=== PATIENT | female | born 1975 | race Caucasian/White ===

== ENCOUNTER → 2022-08-24 12:15 | Outpatient (BNVA) | payer BC, SELFPAY | PROVIDERS: PCP Nurse Practitioner Family; Visit Provider Nurse Practitioner Family | DX: K57.92 Diverticulitis of intestine, part unspecified, without perforation or abscess without bleeding (principal); F41.9 Anxiety disorder, unspecified; R63.4 Abnormal weight loss; F17.200 Nicotine dependence, unspecified, uncomplicated; G47.00 Insomnia, unspecified; M06.9 Rheumatoid arthritis, unspecified; T14.8XXA Other injury of unspecified body region, initial encounter; Z12.11 Encounter for screening for malignant neoplasm of colon; K59.00 Constipation, unspecified; R19.7 Diarrhea, unspecified; R11.0 Nausea; Z78.0 Asymptomatic menopausal state; Z12.31 Encounter for screening mammogram for malignant neoplasm of breast; R42 Dizziness and giddiness; G43.909 Migraine, unspecified, not intractable, without status migrainosus; J45.909 Unspecified asthma, uncomplicated | CPT/HCPCS: 80053; 80061; 82306; 84443 ==

== ENCOUNTER 2022-09-23 10:54 | Outpatient (CLI) | payer BC, SELFPAY ==
--- NOTE | 2022-09-23 11:06 | MM_ITS ---
WS: [id number] BILATERAL SCREENING DIGITAL TOMOSYNTHESIS MAMMOGRAM WITH CAD HISTORY: Screening. COMPARISON: None available. Bilateral CC and MLO views with tomosynthesis and synthetic mammography submitted. Computer aided det ection analyzed. Breast composition: There are scattered areas of fibroglandular density. No suspicious masses, microc alcifications or architectural distortion. MM/[place] [id number] IMPRESSION: BI-RADS: 1-Negative FOLLOW UP: 1 Year Follow-up
== END 2022-09-23 10:55 | disposition home or self-care (01) ==
LOC: RAD 10:55
PROVIDERS: PCP Nurse Practitioner Family; Visit Provider Nurse Practitioner Family
DX: Z12.31 Encounter for screening mammogram for malignant neoplasm of breast (principal)
CPT/HCPCS: 77063; 77067

== ENCOUNTER 2022-10-08 13:23 | Outpatient (CLI) | payer BC, SELFPAY ==
--- NOTE | 2022-10-08 14:30 | CT_ITS ---
WS: [id number] EXAMINATION: CT abdomen w con* [id number] REASON FOR EXAM: ABD pain, nausea, unintentional weight loss, COMPARISON: None available. IV CONTRAST ADMINISTERED: Omnipaque 350 95 ml TOTAL EXAM DLP: 847.[address] scans at [facility] use at least one of these dose optimization techniques: automated e xposure control; mA and/or kV adjustment per patient size (includes targeted exams where dose is matc hed to clinical indication); or iterative reconstruction. FINDINGS: Lung bases are clear. There is gastric banding. The liver and spleen are unremarkable. Small calculi are present in gallbladder without wall thickening or pericholecystic fluid. Pancreas is unremarkable . The adrenal glands are unremarkable. There is generalized atrophy of the left kidney. The right kid neelima is unremarkable. Oral contrast opacifies partially visualized canal without focal abnormality. Partially visualized ap pendix is unremarkable. CT/CT abdomen w con* [id number] IMPRESSION: No acute abnormality
--- NOTE | 2022-10-08 15:00 | CT_ITS ---
WS: [id number] CT HEAD TECHNIQUE: Noncontrast CT of the head obtained from the skullbase to the vertex. CLINICAL INFORMATION: dizziness, headache, nausea, unientional weight loss COMPARISON: None. DLP: 1058.[address] scans at [facility] use at least one of these dose optimization techniques: automated e xposure control; mA and/or kV adjustment per patient size (includes targeted exams where dose is matc hed to clinical indication); or iterative reconstruction. FINDINGS: No evidence of intracranial hemorrhage or mass effect. Ventricular system and basal cisterns are hull nt. No extra-axial fluid collections. No evidence of mass or mass effect. Normal lafleur-white different iation. Small amount of fluid in the LEFT maxillary sinus. Mastoid air cells well aerated. CT/CT head wo con* [id number] IMPRESSION: 1. No evidence of intracranial hemorrhage or mass effect. 2. Normal lafleur-white differentiation. 3. Partially visualized LEFT maxillary sinusitis. 4. Mastoid air cells well aerated. 5. No other acute findings.
[2022-10-08] MEDS: iohexol 350 mg/mL 500 mL Btl (per mL) IV (16:04)
== END 2022-10-08 13:24 | disposition home or self-care (01) ==
LOC: RAD 13:23
PROVIDERS: PCP Nurse Practitioner Family; Visit Provider Nurse Practitioner Family
DX: K57.92 Diverticulitis of intestine, part unspecified, without perforation or abscess without bleeding (principal); K59.00 Constipation, unspecified; R11.0 Nausea; R19.7 Diarrhea, unspecified; R63.4 Abnormal weight loss; J32.0 Chronic maxillary sinusitis
CPT/HCPCS: 70450; 74160; Q9967

== ENCOUNTER 2023-03-30 20:23 | Emergency (ER) | payer BC, SELFPAY ==
[2023-03-30 20:42] VITALS: BP 141/87; PULSE 89; RESP 14; TEMP 36.8; O2SAT 98; BMI 44.4
[2023-03-30 21:37] LABS: Basophils # 0.1 10^3/uL (0.0-0.1); Basophils % 0.6 %; Eosinophils # 0.1 10^3/uL (0.0-0.8); Eosinophils % 1.3 %; Hematocrit 41.3 % (37.0-47.0); Hemoglobin 13.4 g/dL (11.5-15.3); Lymphocytes # 2.9 10^3/uL (0.8-4.8); Lymphocytes % 26.3 %; Mean Corpuscular HGB Conc 32.4 g/dL (30.0-36.0); Mean Corpuscular Hemoglobin 31.1 pg (28.0-34.0); Mean Corpuscular Volume 95.8 fl (81-99); Mean Platelet Volume 9.7 fL (7.4-10.4); Monocytes # 0.7 10^3/uL (0.2-0.9); Monocytes % 6.4 %; Neutrophils # 7.09 10^3/uL (1.8-7.7); Neutrophils % 65.2 %; Nucleated Red Blood Cells % 0 %; Platelet Count 262 10^3/cmm (130-400); Red Blood Count 4.31 10^6/uL (4.1-5.3); Red Cell Distribution Width 13.4 % (12.1-15.1); White Blood Count 10.9 10^3/uL (4.0-10.0)
[2023-03-30 21:57] LABS: Alanine Aminotransferase 11 U/L (0-33); Albumin Level 3.8 g/dL (3.5-5.2); Alkaline Phosphatase 69 U/L (35-105); Anion Gap 13.3 (5-19); Aspartate Amino Transferase 13 U/L (0-32); Blood Urea Nitrogen 14 mg/dL (6-20); Calcium 9.1 mg/dL (8.5-10.5); Carbon Dioxide 26 mmol/L (22-29); Chloride 108 mmol/L (98-107); Globulin 3.1 g/dL (1.3-4.6); Glomerular Filtration Rate 75.9 mL/min (90-130); Glucose 119 mg/dL (65-115); Lipase 15 U/L (13-60); Osmolality Calculated 298 mOsm/kg (285-295); Potassium 4.3 mmol/L (3.5-5.1); Sodium 143 mmol/L (136-145); Total Bilirubin 0.2 mg/dL (0.15-1.2); Total Protein 6.9 g/dL (6.6-8.7)
== END 2023-03-30 22:44 | disposition left against medical advice (07) ==
LOC: ER 20:33
PROVIDERS: Emergency Medicine; Emergency Provider Family Medicine; PCP Nurse Practitioner Family
DX: Z53.21 Procedure and treatment not carried out due to patient leaving prior to being seen by health care provider (principal)
CPT/HCPCS: 36415; 80053; 83690; 85025

== ENCOUNTER 2023-04-19 01:57 | Emergency (ER) | payer BC, SELFPAY ==
[2023-04-19 01:59] VITALS: BMI 43.9
[2023-04-19 02:02] VITALS: BP 150/115; PULSE 77; RESP 16; TEMP 36.6; O2SAT 99
--- NOTE | 2023-04-19 02:21 | CTR_ITS ---
PROCEDURE INFORMATION: Exam: CT Abdomen And Pelvis With Contrast Exam date and time: 04/19/2023 2:45 AM Age: 48 years old Clinical indication: Abdominal pain; Localized; Right upper quadrant (ruq); Prior surgery; Surgery date: 6+ months; Surgery type: Lap band, hysterectomy, ureters replaced at 3 y/o per PT; Additional info: Ruq pain TECHNIQUE: Imaging protocol: Computed tomography of the abdomen and pelvis with contrast. Radiation optimization: All CT scans at this facility use at least one of these dose optimization techniques: automated exposure control; mA and/or kV adjustment per patient size (includes targeted exams where dose is matched to clinical indication); or iterative reconstruction. Contrast material: OMNI 350; Contrast volume: 100 ml; Contrast route: INTRAVENOUS (IV); REPORTING DATA: Count of CT and Cardiac NM exams in prior 12 months: This patient has received 2 known CTs and 0 known cardiac nuclear medicine studies in the 12 months prior to the current study. COMPARISON: CT abdomen w con* [id number] 10/08/2022 4:18 PM RADIATION DOSE METRICS: Total DLP (mGy-cm): 1182.31 FINDINGS: Tubes, catheters and devices: Lap band device in place in expected position. Liver: No acute abnormality. No mass. Gallbladder and bile ducts: Faint tiny gallstones or sludge demonstrated within the posterior gallbladder with slight gallbladder wall thickening and trace pericholecystic fluid suggestive of developing cholecystitis. No significant biliary ductal dilatation. Pancreas: No acute abnormality. No ductal dilation. Spleen: No acute abnormality. Adrenal glands: No significant or acute abnormality. Kidneys and ureters: Chronic left renal atrophy and scarring. Grossly normal right kidney. No hydronephrosis or hydroureter. Stomach and bowel: Ingested contents within stomach. No significant large or small bowel distention. No evidence of diverticulitis. Appendix: Grossly normal nondilated visualized appendix. Intraperitoneal space: No significant fluid collection. No free air. Vasculature: No acute abnormality. No abdominal aortic aneurysm. Lymph nodes: No enlarged lymph nodes. Urinary bladder: Unremarkable as visualized. Reproductive: Previous hysterectomy. Bones/joints: No acute osseous abnormality. No dislocation. Soft tissues: No significant soft tissue abnormalities. CT/CT abdomen pelvis w con* [id number] IMPRESSION: 1. Faint tiny gallstones or sludge demonstrated within the posterior gallbladder with slight gallbladder wall thickening and trace pericholecystic fluid suggestive of developing cholecystitis. 2. Chronic left renal atrophy and scarring. 3. Lap band device in place in expected position. 4. Previous hysterectomy.
[2023-04-19] MEDS: ketorolac 30 mg/mL INJ IVP (02:28)
[2023-04-19] MEDS: ondansetron 2 mg/ML SDV 2 mL 4 MG IVP (02:28)
[2023-04-19] MEDS: sodium chloride 0.9% 1,000 ML 999 ML IV (02:28)
[2023-04-19] MEDS: HYDROmorphone 1 mg/mL INJ 1 mL IVP (02:28)
[2023-04-19] MEDS: iohexol 350 mg/mL 500 mL Btl (per mL) IV (02:48)
[2023-04-19 02:49] LABS: Basophils % 0.2 %; Eosinophils % 0.4 %; Hematocrit 31.4 % (37.0-47.0); Hemoglobin 10.2 g/dL (11.5-15.3); Mean Corpuscular HGB Conc 32.5 g/dL (30.0-36.0); Mean Corpuscular Hemoglobin 31.9 pg (28.0-34.0); Mean Corpuscular Volume 98.1 fl (81-99); Mean Platelet Volume 9.4 fL (7.4-10.4); Monocytes # 0.4 10^3/uL (0.2-0.9); Monocytes % 4.8 %; Neutrophils # 7.02 10^3/uL (1.8-7.7); Neutrophils % 82.2 %; Nucleated Red Blood Cells % 0 %; Platelet Count 183 10^3/cmm (130-400); Red Cell Distribution Width 13.3 % (12.1-15.1); White Blood Count 8.5 10^3/uL (4.0-10.0)
--- NOTE | 2023-04-19 02:52 | ED_ITS ---
HPI - Abdominal Pain General: Chief Complaint: Abdominal Pain Stated Complaint: abd pain Time Seen by Provider: 04/19/23 02:04 Source: patient History of Present Illness: 48-year-old female with a history of gastric lap band surgery. She has had a in the distant past, but no other belly surgeries. She presents with right upper quadrant pain radiating around into her back. This is a second episode she has had. She says this episode is worse than the previous one. She is nauseated. She states that she never vomits after her lap band surgery. No diarrhea. No fever. MD elicited complaint: abdominal pain Pertinent past history: other Onset (ago): hour(s) Location: RUQ Quality: stabbing and aching Radiation: back Migration to: no migration Relieving factors: nothing Associated Symptoms: Reports nausea; Denies belching, bloating, chills, dysuria, fever(s), heartburn, hematochezia, melena and vomiting Review of Systems Const: Denies: fever(s) or chills ENMT: Denies: throat pain Card: Denies: chest pain Resp: Denies: dyspnea GI: Reports: nausea; Denies: vomiting, heartburn, bloating, belching, hematochezia or melena : Denies: flank pain, difficulty voiding or dysuria PFSH ED PFSH: Medical History Insomnia Smoker Family History Other Cancer Social History Smoking and tobacco status: current every day smoker Physical Exam Const: COMMON NORMALS: no acute distress GENERAL APPEARANCE: cooperative; not ill appearing and not frail appearing HENMT: COMMON NORMALS: normocephalic, atraumatic and Normal external nose present HEAD & SCALP: normocephalic and atraumatic FACE & SINUS: normal facial exam and face symmetric NOSE: Normal external nose present Eye: COMMON NORMALS: Equal, round and reactive pupils present and EOMs intact bilaterally PUPIL: Yes Equal, round and reactive pupils present Neck/C-Spine: GENERAL: Yes trachea midline Chest: CHEST: Yes Symmetrical chest wall rise Resp: COMMON NORMALS: normal respiratory effort, No retractions, No use of accessory muscles and clear to auscultation bilaterally AUSCULTATION: clear to auscultation bilaterally Cardio: COMMON NORMALS: regular rate and regular rhythm RATE: regular rate RHYTHM: regular rhythm GI: COMMON NORMALS: Normal to inspection, nondistended, normoactive bowel sounds present PALPATION: Yes Tenderness to palpation present (GI) Details: RUQ and Yes Guarding due to palpation present (GI) Extremity: COMMON NORMALS: no pedal edema Neuro: JUANI COMA SCALE: document GCS findings [place] coma scale eye openin g: Spontaneous [place] coma scale verbal response: Orientated Juani coma scale motor response: Obey commands [place] coma scale total score: 15 SENSORY EXAM: Yes extremities (intact) Psych: COMMON NORMALS: speech normal SPEECH: Yes normal speech Skin: COMMON NORMALS: no rashes or lesions noted GENERAL SKIN EXAM: no rashes or lesions noted Course Vital Signs: Vital signs: Vital Signs Temperature 97.9 F 04/19/23 02:02 Pulse Rate 92 04/19/23 04:23 Respiratory Rate 16 04/19/23 04:23 Blood Pressure 150/115 04/19/23 02:02 Pulse Oximetry 93 04/19/23 04:23 Oxygen Delivery Me thod Room Air, Nasal C annula 04/19/23 02:02 MDM - Abdominal Pain Medical Decision Making Patient with right upper quadrant pain. No fever. Hemoglobin is 10. White blood cell count is 8.5. Potassium is 2.5 with bicarbonate level of 15. C reatinine is 0.4. Lipase is 9. Liver enzymes are normal. Urinalysis is negative. CT shows tiny gallstones or sludge demonstrated in the posterior gallbladder with slight gallbladder wall thickening. Her pain is essentially resolved now with Toradol, Dilaudid, Zofran and IV fluid. Her potassium will be repleted with 20 mEq IV and 60 mEq p.o. liquid potassium. We will recheck potassium at 2 hours. If patient's pain is still improved, and potassium has come up appropriately, will allow home. Follow-up with surgery this week. We will ask case management to make appointment. Lab Data 04/19/23 02:39 04/19/23 04:33 Labs/Radiology: Radiology Impressions Abdomen/Pelvis CT 04/19/23 02:21 IMPRESSION: 1. Faint tiny gallstones or sludge demonstrated within the posterior gallbladder with slight gallbladder wall thickening and trace pericholecystic fluid suggestive of developing cholecystitis. 2. Chronic left renal atrophy and scarring. 3. Lap band device in place in expected position. 4. Previous hysterectomy. Laboratory Results WBC 8.5 10^3/uL (4.0-10.0) 04/19/23 02:39 RBC 3.20 10^6/uL (4.1-5.3) L 04/19/23 02:39 Hgb 10.2 g/dL (11.5-15.3) L 04/19/23 02:39 Hct 31.4 % (37.0-47.0) L 04/19/23 02:39 MCV 98.1 fl (81-99) 04/19/23 02:39 MCH 31.9 pg (28.0-34.0) 04/19/23 02:39 MCHC 32.5 g/dL (30.0-36.0) 04/19/23 02:39 RDW 13.3 % (12.1-15.1) 04/19/23 02:39 Plt Count 183 10^3/cmm (130-400) 04/19/23 02:39 MPV 9.4 fL (7.4-10.4) 04/19/23 02:39 Neut % (Auto) 82.2 % 04/19/23 02:39 Lymph % (Auto) 12.0 % 04/19/23 02:39 [place] % (Auto) 4.8 % 04/19/23 02:39 Eos % (Auto) 0.4 % 04/19/23 02:39 Baso % (Auto) 0.2 % 04/19/23 02:39 Neut # (Auto) 7.02 10^3/uL (1.8-7.7) 04/19/23 02:39 Lymph # (Auto) 1.0 10^3/uL (0.8-4.8) 04/19/23 02:39 [place] # (Auto) 0.4 10^3/uL (0.2-0.9) 04/19/23 02:39 Eos # (Auto) 0.0 10^3/uL (0.0-0.8) 04/19/23 02:39 Baso # (Auto) 0.0 10^3/uL (0.0-0.1) 04/19/23 02:39 Nucleated RBC % (auto) 0 % 04/19/23 02:39 Nucleated RBCs # 0.0 /100WBC 04/19/23 02:39 Sodium 143 mmol/L (136-145) 04/19/23 02:39 Potassium 4.5 mmol/L (3.5-5.1) 04/19/23 04:33 Chloride 119 mmol/L (98-107) H 04/19/23 02:39 Carbon Dioxide 15 mmol/L (22-29) L 04/19/23 02:39 Anion Gap 11.5 (5-19) 04/19/23 02:39 BUN 9 mg/dL (6-20) 04/19/23 02:39 Creatinine 0.4 mg/dL (0.5-0.9) L 04/19/23 02:39 GFR Calculation 169.0 mL/min (90-130) H 04/19/23 02:39 Glucose 100 mg/dL (65-115) 04/19/23 02:39 Calculated Osmolality 295 mOsm/kg (285-295) 04/19/23 02:39 Calcium 6.2 mg/dL (8.5-10.5) L 04/19/23 02:39 Total Bilirubin 0.2 mg/dL (0.15-1.2) 04/19/23 02:39 AST 8 U/L (0-32) 04/19/23 02:39 ALT 8 U/L (0-33) 04/19/23 02:39 Alkaline Phosphatase 39 U/L (35-105) 04/19/23 02:39 Total Protein 4.2 g/dL (6.6-8.7) L 04/19/23 02:39 Albumin 2.3 g/dL (3.5-5.2) L 04/19/23 02:39 Globulin 1.9 g/dL (1.3-4.6) 04/19/23 02:39 Lipase 9 U/L (13-60) L 04/19/23 02:39 Urine Color Yellow (Yellow) 04/19/23 Unknown Urine Appearance Sl hazy (CLEAR) A 04/19/23 Unknown Urine pH 5 (5-7) 04/19/23 Unknown Ur Specific [place] 1.025 (1.005-1.030) 04/19/23 Unknown Urine Protein Trace (Negative) 04/19/23 Unknown Urine Glucose (UA) Norm (Normal) 04/19/23 Unknown Urine Ketones 1+ (Negative) H 04/19/23 Unknown Urine Blood 2+ (Negative) H 04/19/23 Unknown Urine Nitrate Negative (Negative) 04/19/23 Unknown Urine Bilirubin Neg (Negative) 04/19/23 Unknown Urine Urobilinogen Norm mg/dL (Negative) 04/19/23 Unknown Ur Leukocyte Esterase Trace (Negative) H 04/19/23 Unknown Urine RBC 0-4 /hpf (0-2) H 04/19/23 Unknown Urine WBC 0-4 /hpf (0-5) H 04/19/23 Unknown Ur Squamous Epith Cells 0-4 /hpf (0-5) H 04/19/23 Unknown Amorphous Sediment Not Reportable 04/19/23 Unknown Urine Bacteria Trace /hpf (NONE) 04/19/23 Unknown Discharge Plan Discharge Patient Disposition: Home Clinical Impression: Cholecystitis, Hypokalemia Condition: Stable Prescriptions: New Percocet 7.5-325 mg tablet 1 tab PO Q6H PRN (Reason: pain) Qty: 7 0RF ondansetron 4 mg film 4 mg PO DAILY PRN (Reason: nausea and vomiting) Qty: 10 0RF amoxicillin-pot clavulanate 875-125 mg tablet 1 tab PO BID Qty: 14 0RF No Action [employer] CARD inhalation Rx Instructions: AT HS albuterol sulfate [Ventolin HFA] 90 mcg/actuation HFA aerosol inhaler 2 puff inhalation 6XD PRN (Reason: shortness of breath or wheezing) Qty: 8.5 6RF budesonide-formoterol [Symbicort] 160-4.5 mcg/actuation HFA aerosol inhaler 2 puff inhalation Q12H Qty: 10.2 6RF levothyroxine [Euthyrox] 25 mcg tablet 25 mcg PO DAILY 30 Days Qty: 30 3RF docusate sodium [DSS] 250 mg capsule 250 mg PO BID 30 Days Qty: 60 3RF simvastatin 20 mg tablet 20 mg PO .QHS 30 Days Qty: 30 3RF bupropion HCl [Wellbutrin SR] 150 mg tablet sustained-release 12 hr 150 mg PO BID 30 Days Qty: 60 2RF Linzess 145 mcg capsule 145 mcg PO DAILY 30 Days Qty: 30 3RF topiramate [Topamax] 25 mg tablet 25 mg PO BID 30 Days Qty: 60 3RF cholecalciferol (vitamin D3) 125 mcg (5,000 unit) capsule See Rx Instructions .ROUTE .COMPLEX Qty: 30 0RF Dose Instruction: TAKE ONE CAPSULE BY MOUTH DAILY Rx Instructions: TAKE ONE CAPSULE BY MOUTH DAILY Discharge Orders: Discharge ED (Routine); Ordered 04/19/23 Ordered By: Harry Barber Patient Instructions: Cholecystitis (ED), Hypokalemia (ED), Opioid Safety, Pain Management Activity Restrictions/Additional Instructions: Return for return of or worsening pain despite treatment, vomiting liquids or medications despite treatment, fever greater than 100, other concerning symptoms. Medications as directed. Case management has been consulted to make you a surgery appointment this coming week. You should hear from them Wednesday or Wednesday. You should have your potassium rechecked on Wednesday or Wednesday at your doctor's office. Coding Level of Care Code ED Card Punching Machine Operator for Andrzej Whitman
[2023-04-19 03:08] LABS: Alanine Aminotransferase 8 U/L (0-33); Albumin Level 2.3 g/dL (3.5-5.2); Alkaline Phosphatase 39 U/L (35-105); Anion Gap 11.5 (5-19); Aspartate Amino Transferase 8 U/L (0-32); Blood Urea Nitrogen 9 mg/dL (6-20); Calcium 6.2 mg/dL (8.5-10.5); Carbon Dioxide 15 mmol/L (22-29); Chloride 119 mmol/L (98-107); Globulin 1.9 g/dL (1.3-4.6); Glucose 100 mg/dL (65-115); Lipase 9 U/L (13-60); Osmolality Calculated 295 mOsm/kg (285-295); Sodium 143 mmol/L (136-145); Total Bilirubin 0.2 mg/dL (0.15-1.2); Total Protein 4.2 g/dL (6.6-8.7)
[2023-04-19 03:10] LABS: Potassium 2.5 mmol/L (3.5-5.1)
[2023-04-19 03:19] LABS: Urine Color Yellow (Yellow)
[2023-04-19 03:20] LABS: Bilirubin Urine Neg (Negative); Blood Urine 2+ (Negative); Glucose Urine UA Norm (Normal); Ketones Urine 1+ (Negative); Leukocyte Esterase Urine Trace (Negative); Nitrate Urine Negative (Negative); Protein Urine Trace (Negative); Specific Gravity, Urine 1.025 (1.005-1.030); Urine Appearance SL Hazy (CLEAR); Urobilinogen Urine Norm (Negative); pH Urine 5 (5-7)
[2023-04-19 03:21] LABS: Add Urine Microscopic? YES
[2023-04-19 03:23] LABS: Bacteria Urine TRACE /hpf; RBC Urine 0-4 /hpf (0-2); Squamous Epithelial Cell Urine 0-4 /hpf (0-5); WBC Urine 0-4 /hpf (0-5)
[2023-04-19] MEDS: piperacillin-tazobactam 3.375 GM in sodium chloride 0.9% (plus) 50 ML IV (03:59)
[2023-04-19] MEDS: potassium chloride oral liq 20 mEq/15 mL UDC 40 MEQ PO (04:00)
[2023-04-19] MEDS: potassium chloride premix 100 ML 50 MEQ IV (04:04)
[2023-04-19 04:23] VITALS: PULSE 92; RESP 16; O2SAT 93
[2023-04-19 05:11] LABS: Potassium 4.5 mmol/L (3.5-5.1)
[2023-04-19 05:39] VITALS: PULSE 100; RESP 16; O2SAT 93
--- NOTE | 2023-04-19 05:52 | DCPLANNER ---
Addendum entered by Flor Lobo 04/25/23 06:33: manager surgical received the following message from the general surgery clinic regarding follow up appointment: Patient has [employer] of [place] which is an insurance that Dr. Bobby is not in contract with.. Please have patient follow up elsewhere. Patients information was faxed to [facility]: fax number - [phone] / [phone] phone number [phone] Original Note: manager surgical had message to schedule a follow up appointment for patient with general surgery. manager surgical sent patients information to the front office staff at [facility]. Patients information will be printed and reviewed. Clinic will call patient with appointment information.
[2023-04-19 06:18] VITALS: BP 150/115; PULSE 100; RESP 16; TEMP 36.6; O2SAT 93
== END 2023-04-19 06:19 | disposition home or self-care (01) ==
PROVIDERS: Physician Assistant; Emergency Provider Emergency Medicine
DX: K81.9 Cholecystitis, unspecified (principal); E87.6 Hypokalemia
CPT/HCPCS: 36415; 74177; 80053; 81001; 83690; 84132; 85025; 96365; 96366; 96367; 96375; 99285; J1170; J1885; J2405; J2543; J3480; J7030; Q9967

== ENCOUNTER → 2023-04-21 13:03 | Outpatient (BNVA) | payer BC, SELFPAY | PROVIDERS: PCP Nurse Practitioner Family; Visit Provider Nurse Practitioner Family | DX: K81.9 Cholecystitis, unspecified (principal); R11.0 Nausea; E55.9 Vitamin D deficiency, unspecified; E03.8 Other specified hypothyroidism; K59.00 Constipation, unspecified; Z71.6 Tobacco abuse counseling; F17.200 Nicotine dependence, unspecified, uncomplicated; E78.2 Mixed hyperlipidemia; G43.909 Migraine, unspecified, not intractable, without status migrainosus; Z09 Encounter for follow-up examination after completed treatment for conditions other than malignant neoplasm; F41.9 Anxiety disorder, unspecified; E87.6 Hypokalemia | CPT/HCPCS: 80053 ==

== ENCOUNTER → 2023-05-06 11:34 | Outpatient (BNVA) | payer BC, SELFPAY | PROVIDERS: PCP Nurse Practitioner Family; Visit Provider Nurse Practitioner Family | DX: B37.9 Candidiasis, unspecified (principal); R05.9 Cough, unspecified; K81.9 Cholecystitis, unspecified; L08.9 Local infection of the skin and subcutaneous tissue, unspecified; R79.89 Other specified abnormal findings of blood chemistry; E78.2 Mixed hyperlipidemia; E03.8 Other specified hypothyroidism; E55.9 Vitamin D deficiency, unspecified; R10.9 Unspecified abdominal pain; G89.18 Other acute postprocedural pain | CPT/HCPCS: 80053; 80061; 82150; 82306; 83690; 84443 ==

== ENCOUNTER → 2023-12-02 13:50 | Outpatient (BNVA) | payer BC, SELFPAY | PROVIDERS: PCP Nurse Practitioner Family; Visit Provider Nurse Practitioner Family | DX: F41.9 Anxiety disorder, unspecified (principal); E78.2 Mixed hyperlipidemia; E03.8 Other specified hypothyroidism; E55.9 Vitamin D deficiency, unspecified; G43.909 Migraine, unspecified, not intractable, without status migrainosus; G47.00 Insomnia, unspecified; J45.909 Unspecified asthma, uncomplicated; Z71.6 Tobacco abuse counseling; F17.200 Nicotine dependence, unspecified, uncomplicated; K59.00 Constipation, unspecified | CPT/HCPCS: 80053; 80061; 84443 ==

== ENCOUNTER 2025-08-30 10:34 | Outpatient (CLI) | payer SELFPAY ==
--- NOTE | 2025-08-30 12:20 | MR_ITS ---
WS: [id number] MRA CAROTID WITHOUT AND WITH GADOLINIUM ENHANCEMENT TECHNIQUE: Axial 2-D TOF and gadolinium bolus images obtained with axial images and axial, sagittal, and coronal 2-D reformatted images. CLINICAL INFORMATION: DIZZINESS/VERTIGO/SPONDLOLISTHESIS COMPARISON: None. FINDINGS: LEFT dominant vertebral artery. Smaller but patent RIGHT vertebral artery. Proximal basilar artery is patent. RIGHT: RIGHT common carotid artery is patent. No significant RIGHT ICA stenosis. RIGHT ICA is patent to the skull base. LEFT: LEFT common carotid artery is patent. No significant LEFT ICA stenosis. LEFT ICA is patent to the skull base. Proximal subclavian arteries are patent. Normal branching aortic arch anatomy. MR/MR angio neck w con* [id number] IMPRESSION: 1. Normal neck MRA.
== END 2025-08-30 10:35 | disposition home or self-care (01) ==
LOC: RAD 10:38
PROVIDERS: PCP Nurse Practitioner Family; Visit Provider Family Medicine
DX: R42 Dizziness and giddiness (principal); M43.16 Spondylolisthesis, lumbar region; M47.896 Other spondylosis, lumbar region; M47.897 Other spondylosis, lumbosacral region; M41.86 Other forms of scoliosis, lumbar region; R93.5 Abnormal findings on diagnostic imaging of other abdominal regions, including retroperitoneum
CPT/HCPCS: 70548; 72110

== ENCOUNTER 2025-10-08 12:16 | Outpatient (CLI) | payer BC, SELFPAY ==
--- NOTE | 2025-10-08 12:18 | MM_ITS ---
WS: [id number] BILATERAL 3D TOMOSYNTHESIS DIGITAL SCREENING MAMMOGRAM WITH CAD CLINICAL INFORMATION: SCREENING HISTORY: Screening mammogram. No current complaints. COMPARISON: 2021 TECHNIQUE: Bilateral CC and MLO views. FINDINGS: Fatty-replaced breasts bilaterally. No suspicious focal mass, asymmetry, calcifications, or architectural distortion. No evidence of malignancy. MM/MM scr BI tomosynthesis [id number] IMPRESSION: DENSITY: There are scattered areas of fibroglandular density. BI-RADS: 1 - Negative. FOLLOW UP: 1 Year Follow-up Recommend return to annual screening mammography.
== END 2025-10-08 12:17 | disposition home or self-care (01) ==
LOC: RAD 12:17
PROVIDERS: PCP Nurse Practitioner Family; Visit Provider Family Medicine
DX: Z12.31 Encounter for screening mammogram for malignant neoplasm of breast (principal); R92.313 Mammographic fatty tissue density, bilateral breasts
CPT/HCPCS: 77063; 77067